=== PATIENT | male | born 1965 | race Two or more races ===

== ENCOUNTER 2021-01-19 18:15 | Inpatient (IN) | payer OTHER ==
[~2021-01-19] VITALS: Ht 165.1 cm; Wt 81.6 kg
[2021-01-19] MEDS ORDERED: SIMVASTATIN5 MG (18:24)
[2021-01-19] MEDS ORDERED: KEPPRA500 MG (18:24)
[2021-01-19] MEDS ORDERED: COZAAR25 MG (18:25)
[2021-01-19] MEDS ORDERED: ADULT LOW DOSE81 M1 (18:25)
== END 2021-01-26 11:42 | disposition home or self-care (01) | DRG 439 ==
LOC: ER 18:15 → SEC-K 01-20 06:18 → MEDI 01-20 06:18
PROVIDERS: ADMIT Internal Medicine; ATTEND Internal Medicine
PROC: BW21ZZZ Computerized Tomography (CT Scan) of Abdomen and Pelvis (ICD-10-PCS; principal; 2021-01-20)
DX: K85.20 Alcohol induced acute pancreatitis without necrosis or infection (principal); G40.89 Other seizures; F10.10 Alcohol abuse, uncomplicated; I10 Essential (primary) hypertension; M06.8A Other specified rheumatoid arthritis, other specified site; M10.9 Gout, unspecified

== ENCOUNTER 2021-07-24 10:45 | Emergency (ER) | payer OTHER ==
[~2021-07-24] VITALS: Ht 165.1 cm; Wt 90.7 kg
[~2021-07-24 10:45] MED LIST: ADULT LOW DOSE81 M1; COZAAR25 MG; KEPPRA500 MG; SIMVASTATIN5 MG
[2021-07-24] MEDS ORDERED: FOLIC ACID0.8 M1 (11:06)
[2021-07-24] MEDS ORDERED: KEPPRA100 MG/1 M (11:07)
[2021-07-24] MEDS ORDERED: METFORMIN HCL500 MG (11:07)
== END 2021-07-24 17:12 | disposition home or self-care (01) ==
LOC: ER 10:45
DX: R10.13 Epigastric pain (principal)

== ENCOUNTER 2022-12-19 12:42 | Inpatient (IN) | payer OTHER ==
[~2022-12-19] VITALS: Ht 165.1 cm; Wt 85.7 kg
[~2022-12-19 12:42] MED LIST changes: -ADULT LOW DOSE81 M1; +ADULT LOW DOSE81 M1 PO; +FOLIC ACID0.8 M1; +KEPPRA100 MG/1 M; -KEPPRA500 MG; +KEPPRA500 MG PO; +METFORMIN HCL500 MG; -SIMVASTATIN5 MG; +SIMVASTATIN5 MG PO
--- NOTE | 2022-12-19 13:54 | NUR ---
SE RECIBE MASCULINO ALERTA Y ORIENTADO X3 QUIEN REFIERE DOLOR ABDOMINAL DESDE JUAN. PTE CON HX DE PANCREATITIS. SE MONITOREAN S/V Y SE UBICA.
--- NOTE | 2022-12-19 15:41 | NUR ---
SE ORIENTA PTE SOBRE TX MEDICO EL CUAL REFIERE ENTENDER.SE LE EXTRAEN MUESTRAS BAJO MEDIDAS ASEPTICAS,SE CANALIZA Y SE NOTIFICA CT PENDIENTE.
== END 2022-12-23 07:59 | disposition home or self-care (01) | DRG 440 ==
LOC: ER 12:42 → MEDI 20:42
PROVIDERS: ADMIT Internal Medicine; ATTEND Internal Medicine
DX: K85.20 Alcohol induced acute pancreatitis without necrosis or infection (principal); E86.0 Dehydration; I10 Essential (primary) hypertension; E78.5 Hyperlipidemia, unspecified; M06.9 Rheumatoid arthritis, unspecified

== ENCOUNTER 2023-12-05 06:04 | Inpatient (IN) | payer OTHER ==
[~2023-12-05] VITALS: Ht 165.1 cm; Wt 81.6 kg
[2023-12-05] MEDS ORDERED: MEPERIDINE HCL/PF 50 MG/ML VIAL IM STA (06:58)
[2023-12-05] MEDS ORDERED: 0.9 % SODIUM CHLORIDE 1,000 ML IV ONE (07:00)
[2023-12-05 07:50] LABS: URINE APPEARANCE Turbid; URINE BILIRRUBIN Negative (NEGATIVE); URINE BLOOD Negative; URINE COLOR Dark Yellow; URINE GLUCOSE Negative (NEGATIVE); URINE LEUKOCYTE Negative; URINE NITRATE Negative
[2023-12-05 07:52] LABS: HEMATOCRIT 42.7 % (39.0-48.0); HEMOGLOBIN 14.4 g/dL (13-16.00); MEAN CELL VOLUME 89.8 fL (80.0-100.00); MEAN CORPUSCULAR HEMOGLOBIN 30.3 pg (27.00-32.0); MEAN CORPUSCULAR HGB CONC 33.7 g/dl (32.0-36.0); PLATELET COUNT 270 K/uL (150-450); RED BLOOD COUNT 4.75 M/uL (4.00-6.00); RED CELL DISTRIBUTION WIDTH 13.8 % (11.5-14.5)
[2023-12-05 07:53] LABS: URINE BACTERIA 51.6 uL (0.0-1933); URINE EPITHELIAL CELLS 12.2 uL (0.0-38.8); URINE RBC 19.1 uL (0.0-20.8); URINE WBC 11.4 uL (0.0-23.2)
[2023-12-05 08:06] LABS: URINE PROTEIN 100 (NEGATIVE)
[2023-12-05 08:29] LABS: ALBUMIN 4.4 gm/dL (3.4-5.0); BILIRUBIN TOTAL 1.06 mg/dL (0.3-1.2); BILIRUBIN,CONJUGATED 0.25 mg/dL (0.0-0.2); BILIRUBIN,UNCONJUGATED 0.81 mg/dL (0.0-0.6); CALCIUM 9.7 mg/dL (8.5-10.1); CREATININE SERUM 1.13 mg/dL (0.70-1.30); GFR 66.89; GLOBULINA 4.3 G/DL (2.4-3.5); POTASSIUM 3.71 mEq/L (3.5-5.1); TOTAL PROTEIN 8.7 gm/dL (6.4-8.2)
[2023-12-05 09:02] LABS: INR 1.04; PARTIAL THROMBOPLASTIN TIME 29.1 SECONDS (22.0-34.0); PROTHROMBIN TIME 10.9 SECONDS (9.0-11.5)
[2023-12-05] MEDS ORDERED: MORPHINE SULFATE 4 MG/ML VIAL IV SCH (13:00)
[2023-12-05] MEDS ORDERED: 0.9 % SODIUM CHLORIDE 1,000 ML IV SCH (13:00)
[2023-12-05] MEDS ORDERED: METRONIDAZOLE/SODIUM CHLORIDE 100 ML IV SCH (13:03)
[2023-12-05] MEDS ORDERED: ONDANSETRON HCL 4 MG in DEXTROSE 5 % IN WATER 50 ML IV SCH (13:03)
[2023-12-05] MEDS ORDERED: FAMOTIDINE/PF 20 MG/2 ML VIAL IV SCH (13:03)
[2023-12-05] MEDS ORDERED: CIPROFLOXACIN IN 5 % DEXTROSE 200 ML IV SCH (13:03)
[2023-12-05 17:34] LABS: INR 1.04; PARTIAL THROMBOPLASTIN TIME 28.8 SECONDS (22.0-34.0); PROTHROMBIN TIME 10.9 SECONDS (9.0-11.5)
[2023-12-05 17:44] LABS: ALBUMIN 4.3 gm/dL (3.4-5.0); BILIRUBIN TOTAL 0.86 mg/dL (0.3-1.2); BILIRUBIN,CONJUGATED 0.26 mg/dL (0.0-0.2); BILIRUBIN,UNCONJUGATED 0.6 mg/dL (0.0-0.6); CALCIUM 9.5 mg/dL (8.5-10.1); CREATININE SERUM 1.09 mg/dL (0.70-1.30); GFR 69.73; POTASSIUM 4.19 mEq/L (3.5-5.1); TOTAL PROTEIN 8.4 gm/dL (6.4-8.2)
[2023-12-05 19:04] LABS: ABG PH 7.421 (7.35-7.45); ABG PO2 79.4 mmHg (80-100); ABG pCO2 37.9 mmHg (35-45); BASE EXCESS -0.1 mmol/l; BICARBONATE 24.1 mmol/l (23-25); SaO2 95.9 %; Tco2 25.2 mmol/l; allen test SATISFACTORY; o2 21 %; puncture site RADIAL RIGHT
[2023-12-05] MEDS ORDERED: MORPHINE SULFATE 4 MG,MORPHINE SULFATE 2 MG IV SCH (21:00)
[2023-12-07 06:12] LABS: HEMATOCRIT 38.9 % (39.0-48.0); HEMOGLOBIN 13.5 g/dL (13-16.00); MEAN CELL VOLUME 89.8 fL (80.0-100.00); MEAN CORPUSCULAR HEMOGLOBIN 31.2 pg (27.00-32.0); MEAN CORPUSCULAR HGB CONC 34.8 g/dl (32.0-36.0); PLATELET COUNT 238 K/uL (150-450); RED BLOOD COUNT 4.33 M/uL (4.00-6.00); RED CELL DISTRIBUTION WIDTH 13.8 % (11.5-14.5)
[2023-12-07 06:45] LABS: BILIRUBIN TOTAL 1.03 mg/dL (0.3-1.2); CALCIUM 9.1 mg/dL (8.5-10.1); GFR 77.02; GLOBULINA 3.9 G/DL (2.4-3.5); POTASSIUM 4.08 mEq/L (3.5-5.1); TOTAL PROTEIN 7.9 gm/dL (6.4-8.2)
== END 2023-12-07 13:54 | disposition home or self-care (01) | DRG 440 ==
LOC: ER 06:04 → SEC-K 13:06 → MEDJ 15:02
PROVIDERS: General Practice; ADMIT Internal Medicine; ATTEND Internal Medicine
PROC: BW21YZZ Computerized Tomography (CT Scan) of Abdomen and Pelvis using Other Contrast (ICD-10-PCS; principal; 2023-12-05)
DX: K85.20 Alcohol induced acute pancreatitis without necrosis or infection (principal); I10 Essential (primary) hypertension; F10.20 Alcohol dependence, uncomplicated; M10.9 Gout, unspecified